=== PATIENT | female | born 1970 | race Caucasian/White ===

== ENCOUNTER → 2016-06-15 08:55 | Outpatient (CLI) | payer OTHER, BC ==
[~2016-06-15 08:55] MED LIST: ACETAMINOPHEN325 MG PO; BENADRYL25 MG PO; DEMEROL50 MG PO; IBUPROFEN600 MG PO
[2016-06-23 09:48] VITALS: BMI 27.3
== END | disposition home or self-care (01) ==
LOC: D.LDO 08:55
DX: O09.513 Supervision of elderly primigravida, third trimester (principal); Z3A.38 38 weeks gestation of pregnancy

== ENCOUNTER → 2016-06-18 08:31 | Outpatient (CLI) | payer OTHER, BC ==
[2016-06-23 09:48] VITALS: BMI 27.3
== END | disposition home or self-care (01) ==
LOC: D.LDO 08:31
DX: O24.419 Gestational diabetes mellitus in pregnancy, unspecified control (principal); O09.513 Supervision of elderly primigravida, third trimester; Z3A.39 39 weeks gestation of pregnancy

== ENCOUNTER → 2016-06-20 08:40 | Outpatient (CLI) | payer OTHER, BC ==
[2016-06-20 09:16] LABS: BASOPHILS 0.2 % (0.0-2.0); EOSINOPHILS 0.6 % (0-7); HEMATOCRIT 33.5 % (36.0-48.0); HEMOGLOBIN 11.3 g/dL (12-16); IMMATURE GRANULOCYTES 0.2 % (0-5); LYMPHOCYTES 20.3 % (15-50); MCH 30.5 pg (26.0-34.0); MCHC 33.7 g/dL (31.0-37.0); MCV 90.5 fL (80.0-100.0); MEAN PLATELET VOLUME 10.4 fL (7.4-10.4); MONOCYTES 7.8 % (2-11); NEUTROPHILS 70.9 % (40-80); PLATELET COUNT 154 10x3/uL (130-400); RDW 12.7 % (11.5-14.5); WBC 5.2 10x3/uL (4.8-10.8)
[2016-06-20 09:23] LABS: CALC OSMOLALITY 275 mosm/kg (275-300); CALCIUM 8.4 mg/dL (8.5-10.1); CARBON DIOXIDE 19.5 mmol/L (21.0-32.0); CHLORIDE - SERUM 108 mmol/L (98-107); CREATININE - SERUM 0.7 mg/dL (0.6-1.3); GLUCOSE 85 mg/dL (74-106); POTASSIUM - SERUM 3.8 mmol/L (3.5-5.1); SODIUM 139 mmol/L (136-145); UREA NITROGEN 11 mg/dL (7-18); eGFR NON AFRICAN AMERICAN > 90 mL/min (90-120)
[2016-06-20 09:28] LABS: APPEARANCE HAZY (CLEAR); BACTERIA MODERATE /hpf (NONE SEEN); BILIRUBIN NEGATIVE (NEGATIVE); COLOR YELLOW (YELLOW); GLUCOSE NEGATIVE (NEGATIVE); KETONE NEGATIVE (NEGATIVE); LEUKOCYTE ESTERASE 1+ (NEGATIVE); NITRITE NEGATIVE (NEGATIVE); PROTEIN NEGATIVE (NEGATIVE); RED CELLS - URINE 0-5 /hpf (0-5); UROBILINOGEN NORMAL (NORMAL)
--- NOTE | 2016-06-20 09:42 | NUR ---
DR REYNA NOTIFIED OF PT REQUEST REGARDING PAIN MEDICATION, INSTRUCTED TO LET HER KNOW THAT HE DOES NOT PRESCRIBE NARCOTICS WHEN UDS COMES UP POSITIVE FOR AMPHETAMINES. INSTRUCTED PT ON THIS INFORMATION AND SHE STATES "THAT'S OK, I UNDERSTAND." INSTRUCTED ON RELIEF MEASURES FOR BACKPAIN AND USE OF MOTRIN. VERBALIZED UNDERSTANDING. WILL DC NOW TO ROOMING IN STATUS. VISITOR X 1 IN ROOM.
[2016-06-23 09:48] VITALS: BMI 27.3
== END | disposition home or self-care (01) ==
LOC: D.LDO 08:40
PROVIDERS: Obstetrics & Gynecology
DX: Z34.83 Encounter for supervision of other normal pregnancy, third trimester (principal); Z3A.39 39 weeks gestation of pregnancy; R11.0 Nausea; R10.9 Unspecified abdominal pain

== ENCOUNTER → 2016-06-21 11:05 | Outpatient (CLI) | payer OTHER, BC ==
[2016-06-23 09:48] VITALS: BMI 27.3
== END | disposition home or self-care (01) ==
LOC: D.LDO 11:05
DX: O09.513 Supervision of elderly primigravida, third trimester (principal); Z3A.39 39 weeks gestation of pregnancy

== ENCOUNTER 2016-06-23 04:45 | Inpatient (IN) | payer OTHER, BC ==
[~2016-06-23] VITALS: Ht 152.4 cm; Wt 63.5 kg
[2016-06-23] VITALS (12 sets, daily range): BP systolic 109–146; BP diastolic 65–89; Ht 152.4 cm; Wt 63.5 kg
[2016-06-23] MEDS ORDERED: ACETAMINOPHEN325 MG PO (05:43)
[2016-06-23] MEDS ORDERED: BENADRYL25 MG PO (05:43)
[2016-06-23 06:28] LABS: HEMATOCRIT 35.1 % (36.0-48.0); HEMOGLOBIN 11.7 g/dL (12-16); MCHC 33.3 g/dL (31.0-37.0); MEAN PLATELET VOLUME 10.9 fL (7.4-10.4); RBC 3.9 10x6/uL (4.00-5.40); RDW 12.8 % (11.5-14.5)
[2016-06-23 06:39] LABS: APPEARANCE HAZY (CLEAR); BILIRUBIN NEGATIVE (NEGATIVE); COLOR YELLOW (YELLOW); GLUCOSE NEGATIVE (NEGATIVE); KETONE NEGATIVE (NEGATIVE); LEUKOCYTE ESTERASE 1+ (NEGATIVE); NITRITE NEGATIVE (NEGATIVE); PROTEIN NEGATIVE (NEGATIVE); UROBILINOGEN NORMAL (NORMAL)
[2016-06-23 06:44] LABS: BACTERIA MODERATE /hpf (NONE SEEN); MUCUS <1+ /lpf (NONE SEEN); RED CELLS - URINE RARE /hpf (0-5); WHITE CELLS - URINE 0-5 /hpf (0-5)
--- NOTE | 2016-06-23 09:15 | NUR ---
PT WAS RECEIVED FROM RECOVERY. PT WAS AWAKE AND ALERT. FAMILY AND AT BEDSIDE. LUNGS- CLEAR. HEART- RRR ABD- SOFT WITH TENDERNESS. FUNDUS FIRM AT 2 ABOVE UMBILICUS. EXT- SCD'S INTACT. YOUNG INTACT- 125 CC SUHAS COLORED URINE. IV INTACT R FOREARM. IV PATENT LACTATED RINGERS WITH 20 UNITS OF PIT INFUSING AT 125 CC/HR. BED IS LOW. CALL LIGHT IN REACH AND SIDE RAILS UP X 2.
--- NOTE | 2016-06-23 10:00 | NUR ---
PT IS RESTING IN BED. OFFERS NO COMPLAINTS. STATES PAIN IS ABOUT A 3 NOW.
--- NOTE | 2016-06-23 10:39 | NUR ---
BABY TO ROOM. MOTHER FEEDING BABY A BOTTLE. BED IS LOW, CALL LIGHT IN REACH SIDE RAILS UP X 2
--- NOTE | 2016-06-23 12:28 | OP ---
PATIENT NAME: HERBERTH FLOR MEDICAL RECORD: [id number] :74 LOCATION:TRAN [id number] ADMISSION DATE:06/23/16 SURGEON: LUDA MOHR MD DATE OF OPERATION: 06/23/2016 PREOPERATIVE DIAGNOSES: A 39-week gestation, gestational diabetes, previous section and undesired fertility. POSTOPERATIVE DIAGNOSES: A 39-week gestation, gestational diabetes, previous section and undesired fertility. PROCEDURE: Repeat low transverse section and bilateral tubal ligation. SURGEON: Luda Mohr MD. ANESTHESIA: Spinal. FINDINGS: A 7 pound and 6 ounce female infant in cephalic presentation with clear fluid, 9 and 9 Apgars. ESTIMATED BLOOD LOSS: 800 cc. COMPLICATIONS OF SURGERY: None. OPERATIVE NOTE: The patient was taken to the OR and under adequate spinal anesthesia, prepped and draped in the usual manner for abdominal procedures. A transverse incision was made in the lower abdomen in a Pfannenstiel manner extended through subcutaneous tissue, fascia, dividing muscles in the midline. Peritoneum was elevated and incised and this incision extended from the symphysis pubis to within 6 cm of the umbilicus, avoiding the bladder and abdominal organs. A transverse incision was then made in the lower uterine segment and infant was delivered through the uteroabdominal incision without difficulty. was thoroughly suctioned, cord doubly clamped and ligated and the handed to the waiting nursery personnel. Uterine incision closed in 2 layers after removal of the placenta. The first layer was a running interlocked locking #1 chromic; second layer an imbricating #1 chromic. Pelvis was copiously irrigated and suctioned and hemostasis confirmed. The tubes were then addressed. The right tube and left tube were both ligated in Emiyl manner without difficulty. The pelvis was again copiously irrigated and suctioned and hemostasis again confirmed. Maggie was applied to the lower uterine segment incision. Sponge, needle counts again correct. Fascial layer was closed in a running noninterlocking #1 PDS loop suture. Skin incision reapproximated using 2-0 plain gut subcuticular suture. Dermabond was applied. Steri-Strip dressing applied and the patient went to recovery area in good condition. TRANSINT:[id number] Voice Confirmation ID: [id number] DOCUMENT ID: [id number] OPERATIVE REPORT [id number] HERBERTH FLOR BRENDA MD at 1228 CC: [id number] DICTATION DATE: 06/23/16903 DIRECTOR OF CODING: 06/23/16 0924 ADM IN [facility] [address] [id number]
--- NOTE | 2016-06-23 12:48 | NUR ---
LINENS CHANGED. MODERATE LOCIA RUBRA ON GROVER PAD AND BED PAD. ALL PADS CHANGED. PT WAS CLEANED UP ALSO. OFFERS NO COMPLAINTS. ROLLED SIDE TO SIDE AND TOLERATED WELL.
--- NOTE | 2016-06-23 13:52 | NUR ---
PT IS RESTING IN BED. SHE OFFERS NO COMPLAINTS. HER IS AT BEDSIDE.
--- NOTE | 2016-06-23 15:13 | NUR ---
PT REQUESTED PAIN MED. GAVE HER DEMEROL 50 MG. ALSO GAVE HER FRESH ICE WATER. AT BEDSIDE. BED IS LOW. SIDE RAILS UP X 2 AND CALL LIGHT IN REACH.
--- NOTE | 2016-06-23 16:13 | NUR ---
PT IS SITTING UP IN BED, HOLDING BABY. SHE OFFERS NO COMPLAINTS. SHE STATES THAT SHE IS VERY THANKFUL FOR OUR CARE.
--- NOTE | 2016-06-23 18:34 | NUR ---
FUNDUS FIRM. TORADOL GIVEN IV FOR PAIN.
--- NOTE | 2016-06-23 19:00 | NUR ---
PM ROUNDS MADE, PT HOLDING BABY, INFORMED PT THAT I WILL BE BACK SHORTLY TO DO ASSESSMENT, PT VERBALIZES UNDERSTANDING, DENIES NEEDS AT THIS TIME
--- NOTE | 2016-06-23 19:30 | NUR ---
PT GETTING READY TO BOTTLE FEED BABY, INFORMED PT THAT I WILL COME BACK WHEN SHE IS FINISHED, VERBALIZES UNDERSTANDING, DENIES NEEDS
--- NOTE | 2016-06-23 20:15 | NUR ---
ASSESSMENT PER FLOW SHEET, VS OBTAINED, IV IN RIGHT FA INTACT WITH NO REDNESS OR EDEMA INFUSING VIA PUMP NS WITH PITOCIN AT 125 ML/HR, FF, ML, 2/U, LIGHT BLEEDING NOTED WITH NO CLOTS, GROVER CARE DONE WITH WET WARM WASH CLOTHS, PINK PAD, BLUE CHUX AND GROVER PAD CHANGED, BIKINI INC WITH SS CDI WITH NO DRAINAGE NOTED, FRESH ICE PACK TO ABD, YOUNG CATH INTACT DRAINING DARK YELLOW URINE, PT INST TO DRINK PLENTY OF FLUIDS, PT REQUESTS [facility], WILL BRING WITH PAIN MED, PT RATES INC PAIN 10/20, PT REQUEST THE REMOVAL OF THE YOUNG AND STOPPING THE PITOCIN, STATES "I HATE THAT PITOCIN", INFORMED PT THAT I WILL CALL THE DOCTOR SOFTWARE DEVELOPMENT INTERN AND SEE IF I CAN GET A 12 HOUR POST OP ORDER, PT STATES "THAT WOULD BE GREAT, THANK YOU", SCD'S ON AND WORKING PROPERLY, BABY BACK TO ARMS
--- NOTE | 2016-06-23 20:36 | NUR ---
ADM DEMEROL 100 MG PO PER MD ORDERS, SEE EMAR, WITH [facility], PT DENIES FURTHER NEEDS, TRASH REMOVED
--- NOTE | 2016-06-23 21:15 | NUR ---
DR REYNA NOTIFIED, REPORT OF PT WANTING THE YOUNG CATH REMOVED AND STOPPING THE PITOCIN, ORDERS RECEIVED
--- NOTE | 2016-06-23 21:40 | NUR ---
PT HOLDING BABY, INFORMED PT OF ORDERS, PT STATES "THAT SOUNDS GREAT, THANK YOU FOR GETTING THAT ORDER", INFORMED PT THAT I WILL REMOVE YOUNG, SALINE LOCK IV, AND MOVE HER TO ROOM 1257 AFTER SHE FEEDS BABY, PT VERBALIZES UNDERSTANDING, DENIES FURTHER NEEDS
--- NOTE | 2016-06-23 22:00 | NUR ---
BABY TO NSY VIA OPEN CRIB CART PER THIS RN, INFORMED PT THAT BABY WILL BE RIGHT BACK AFTER BS CHECK
--- NOTE | 2016-06-23 23:15 | NUR ---
TRANSFERRED PT TO ROOM 1257 VIA WC, PT DID WELL, PT VERY APPRECIATIVE OF MOVING TO THE BIGGER ROOM, ALL BELONGINGS TRANSFERRED WITH PT, PT TRANSFERRED SELF TO FROM BED TO WC AND THEN WC TO BED WITH NO DIFFICULTY, FRESH ICE PACK TO ABD, VS OBTAINED, FRESH H20 SERVED, PT ORIENTED TO ROOM, BED IN LOW POSITION, SIDE RAILS X 2, CALL LIGHT IN REACH, BABY IN NSY AT THIS TIME FOR PT TO REST BEFORE NEXT FEEDING, PT DENIES FURTHER NEEDS
--- NOTE | 2016-06-24 00:30 | NUR ---
PT AROUSES TO OPENING OF DOOR, RATES INC PAIN 2/10, DENIES NEEDS AT THIS TIME
--- NOTE | 2016-06-24 00:46 | NUR ---
BOTTLE TAKEN TO PT FOR INFANT. PT BONDING WITH INFANT, DENIES NEEDS AT THIS TIME. BED IN LOW POSITION WITH UPPER SIDE RAILS RAISED X2. CL/PHONE WITHIN REACH.
--- NOTE | 2016-06-24 01:00 | NUR ---
PT AWAKE, BABY TO ROOM VIA OPEN CRIB CART PER THIS RN FOR FEEDING, BANDS CHECKED, PT DENIES NEEDS AT THIS TIME
--- NOTE | 2016-06-24 04:30 | NUR ---
CURRENT INFUSION OF PITOCIN COMPLETE. IV SL AT THIS TIME. PT DENIES FURTHER NEEDS. WILL CONTINUE TO MONITOR.
[2016-06-24 05:15] LABS: RAPID PLASMA REAGIN Non Reactive (Non Reactive)
[2016-06-24 06:23] LABS: HEMOGLOBIN 10.3 g/dL (12-16); MCHC 33.2 g/dL (31.0-37.0); MCV 90.4 fL (80.0-100.0); RBC 3.43 10x6/uL (4.00-5.40); RDW 12.9 % (11.5-14.5); WBC 7.1 10x3/uL (4.8-10.8)
--- NOTE | 2016-06-24 07:15 | NUR ---
DR KAT IS HERE TO SEE PT. PT IS SCHEDULED TO HAVE SURGERY TODAY FOR ORIF OF LEFT WRIST BY DR BECKER TODAY. PT HAS BEEN NPO SINCE LAST PM.
[2016-06-24 07:30] VITALS: BP 109/68
--- NOTE | 2016-06-24 07:30 | NUR ---
ASSESSMENT DONE. PT SITTING UP IN BED. DENIES NEEDS. FUNDUS FIRM. SMALL LOCHIA NOTED ON PAD.
--- NOTE | 2016-06-24 07:30 | NUR ---
PT IS RECEIVED LYING IN BED. SHE STATES THAT SHE IS SUPPOSE TO BE HAVING SURGERY TODAY ON HER LEFT WRIST. SHE IS NPO. GEN- AWAKE AND ALERT. LUNGS- CLEAR. HEART- RRR. ABDOMEN- SOFT NON TENDER. BS +. LE NO EDEMA NOTED. LEFT UPPER EXTREMITY IN A SPLINT AND SLING AT THIS TIME. SHE CAN MOVE HER FINGERS AND FEEL ME TOUCH THEM. SHE HAS AN IV R FOREARM WHICH IS PATENT. D5LR INFUSING @ 75 CC/HR. SHE HAS A MORPHINE DIRECTOR OF SAFETY. BED IS LOW, CALL LIGHT IN REACH, SIDE RAILS UP X 2.
--- NOTE | 2016-06-24 07:45 | NUR ---
RESPIRATORY THERAPY HERE AND GAVE PT A BREATHING TREATMENT. PT TOLERATED WELL.
--- NOTE | 2016-06-24 07:47 | NUR ---
dr argueta in room to see pt.
--- NOTE | 2016-06-24 07:50 | NUR ---
YOUNG CATH REMOVED POST BULB DEFLATED WITH 650CC YELLOWISH URINE.
--- NOTE | 2016-06-24 09:05 | NUR ---
ambulated to bathroom. voided 800cc yellowish- lt blood tinged urine. into shower tolerated well.
--- NOTE | 2016-06-24 09:37 | NUR ---
returned to bed. states will take demerol 50mg po for pain now.
--- NOTE | 2016-06-24 11:00 | NUR ---
pt up and about in room. rates pain 1 on scale of 0-10 at this time.
[2016-06-24 11:30] LABS: BASOPHILS 0.1 % (0.0-2.0); EOSINOPHILS 0.1 % (0-7); HEMATOCRIT 33.1 % (36.0-48.0); HEMOGLOBIN 10.9 g/dL (12-16); IMMATURE GRANULOCYTES 0.1 % (0-5); LYMPHOCYTES 8.1 % (15-50); MCH 29.9 pg (26.0-34.0); MCHC 32.9 g/dL (31.0-37.0); MCV 90.9 fL (80.0-100.0); MONOCYTES 3.6 % (2-11); PLATELET COUNT 128 10x3/uL (130-400); RBC 3.64 10x6/uL (4.00-5.40); RDW 12.7 % (11.5-14.5); WBC 7.5 10x3/uL (4.8-10.8)
[2016-06-24 12:00] VITALS: BP 92/61
--- NOTE | 2016-06-24 12:00 | NUR ---
PT UP AND ABOUT IN ROOM. VOIDED AGAIN WITH 600CC IN CONTAINER. RATES PAIN A 1 ON SCALE OF 0-10. DENIES NEEDS.
--- NOTE | 2016-06-24 14:55 | NUR ---
rings call light. requesting pain medication. rates pain a 7 on scale of 0-10. states has been to bathroom and has had a bm and is passing gas.
--- NOTE | 2016-06-24 15:55 | NUR ---
pt up and ambulating in hallways- tolerated well.
--- NOTE | 2016-06-24 16:25 | NUR ---
sitting up in bed. family at bedside. no requests- denies needs.
--- NOTE | 2016-06-24 18:30 | NUR ---
SITTING UP IN BED- IN ROOM. STATES THAT SINUS ARE FEELING A LITTLE STUFFY. DENIES NEED FOR MEDICATION FOR SINUSES OR PAIN AT THIS TIME.
[2016-06-24 19:30] VITALS: BP 116/75
--- NOTE | 2016-06-24 19:30 | NUR ---
SHIFT ASSESSMENT COMPLETED. PATIENT BONDING WITH AT THIS. VSS. FUNDUS FIRM, U2, SCANT AMT RUBRA LOCHIA TO PERIPAD, NO CLOTS. PATIENT STATES THAT SHE HAD JUST CHANGED PERIPAD AROUND 1845. INCISION CLEAN AND DRY WITH STERISTRIPS INTACT. PILLOW CASE PLACED IN ABD FOLD TO ASSIST WITH KEEPING INCISION CLEAN AND DRY, INSTRUCTED PATIENT THAT SHE COULD DO THIS AT HOME WELL, VERBALIZED UNDERSTANDING. INSTRUCTED ON S/S OF INFECTION/COMPLICATIONS TO REPORT FOLLOWING D/C HOME AND LIFTING RESTRICTIONS. EDUCATED REGARDING LOCHIA AMT/APPEARENCE/DURATION DURING PP PERIOD, PT VERBALIZED UNDERSTANDING STATING THAT SHE HAD HAD A PREVIOUS AND HAD OTHER CHILDREN AND REMEMBERED FROM THEM WELL. BED IN LOW POSITION. CL/PHONE WITHIN REACH. UPPER SIDE RAILS RAISED X2. SL NOTED IN RT FOREARM, FLUSHES WITHOUT DIFFICULTY. PAIN CURRENTLY "2-3/10" DENIES NEED FOR MEDICATIONS AT THIS TIME. PT NOTED TO HAVE NASAL CONGESTION, REQUESTS MEDS FOR THIS. REPORTED TO DR. PATEL WITH V/O FOR SUDAFED Q6HR PRN AND PAULINA DAILY. PHARMACY NOTIFED AND REQUESTED TO BRING MEDS.
--- NOTE | 2016-06-24 20:31 | NUR ---
PATIENT BOTTLE FEEDING INFANT AT THIS TIME. DENIES NEEDS. PAIN 08/20. WILL CONT TO MONITOR AND ASSIST PRN.
--- NOTE | 2016-06-24 21:39 | NUR ---
PAIN CURRENTLY 5/10, ABD CRAMPING, INCISIONAL BURNING. PATIENT REQUESTED 50 MG DEMEROL "TO GET ME THROUGH THE NIGHT." PAULINA AND SUDAFED GIVEN PER ORDERS FOR NASAL CONGESTION. PATIENT DENIES ADDITIONAL NEEDS AT THIS TIME. INFANT REMAINS IN ROOM, PATIENT BONDING WELL WITH INFANT. BED REMAINS IN LOW POSITION. CL/PHONE WITHIN REACH. UPPER SIDE RAILS RAISED X2. DENIES ADDITIONAL NEEDS AT THIS TIME.
--- NOTE | 2016-06-24 22:36 | NUR ---
PAIN REASSESSMENT COMPLETED. PAIN 06/22 CURRENTLY. DENIES NEED FOR ADDITIONAL INTERVENTION. SITTING UP IN BED HOLDING INFANT AT THIS TIME, DENIES NEEDS. WILL CONT TO MONITOR AND ASSIST PRN.
[2016-06-24 23:40] VITALS: BP 103/71
--- NOTE | 2016-06-24 23:45 | NUR ---
ROUNDS MADE. VSS. FUNDUS REMAINS FIRM, U2. SMALL AMT RUBRA LOCHIA TO PERIPAD, NO CLOTS. ICE WATER GIVEN. REFUSES SCD'S STATING THAT SHE IS GOING TO WALK AROUND THE UNIT AND CAN'T REST WELL WITH THEM ON. DENIES ADDITIONAL NEEDS AT THIS TIME. INFANT REMAINS IN ROOM, INSTRUCTED THAT WOULD NEED TO BE IN NBN WHEN SHE AMBULATED, VERBALIZED UNDERSTANDING.
--- NOTE | 2016-06-25 02:31 | NUR ---
PT SLEEPING AT THIS TIME. IN NBN. RESPIRATIONS REGULAR, NO S/S OF DISTRESS NOTED. BED IN LOW POSITION. CL/PHONE WITHIN REACH. WILL CONT TO MONITOR AND ASSIST PRN.
--- NOTE | 2016-06-25 03:31 | NUR ---
INFANT TAKEN BACK TO ROOM. VSS. FUNDUS REMAINS FIRM, U2. SMALL AMT RUBRA LOCHIA TO PERIPAD, NO CLOTS. REQUESTED MOTRIN AND DEMEROL FOR PAIN 8/10 TO INCISION AND ABD CRAMPING.
--- NOTE | 2016-06-25 03:55 | NUR ---
PAIN 9/10. DEMEROL (50 MG) TAB GIVEN PER ORDERS AND PT REQUEST, MOTRIN ALSO GIVNEN. ICE WATER GIVEN. PT CURRENTLY SITTING UPRIGHT IN BED BOTTLE FEEDING INFANT. REQUEST ICE PACK TO PLACE ON INCISION, GIVEN PER REQUEST. DENIES ADDITIONAL NEEDS. WILL CONT TO MONITOR AND ASSIST PRN.
--- NOTE | 2016-06-25 04:39 | NUR ---
PAIN REASSESSMENT COMPLETED. PAIN 07/23. ICE WATER GIVEN. DENIES ADDITIONAL NEEDS AT THIS TIME. ICE PACK REMAINS IN PLACE TO ABD.
--- NOTE | 2016-06-25 06:23 | NUR ---
ROUNDS MADE. PT SITTING UP IN BED HOLDING INFANT. REQUESTED BOTTLE FOR INFANT. NBN NOTIFIED, RN TO GET BOTTLE FROM NBN. PER NBN RN DID NOT NEED TO FEED AGAIN UNTIL 0800, INSTRUCTED PT ON THIS. PT STATES THAT ONLY ATE 30 MLS AND CONTINUED TO ROOT, ENCOURAGED TO BURP INFANT BEFORE FEEDING, PT STATES THAT INFANT BURPED WELL. PT CHANGING DIAPER UPON RN LEAVING ROOM.
--- NOTE | 2016-06-25 08:00 | NUR ---
PATIENT AWAKE AND ALERT, SITTING UP IN HER BED. FEMALE VISITOR AT THE BEDSIDE HOLDING . PATIENT DENIES DISCOMFORT AND NEED FOR MEDICATION. SHE ANTICIPATES GOING HOME TODAY, STATES THAT SHE IS EXCITED AND NERVOUS.
--- NOTE | 2016-06-25 10:30 | NUR ---
FOB AT THE BEDSIDE BOTTLE FEEDING THE . HE IS HOLDING HER AND TALKING LOVINGLY TO HER. MOB CONFESSES TO SOME SORENESS BUT NO UNCONTROLLED PAIN. INCISION IS CLEAN DRY AND INTACT. SHE IS AMBULATING AROUND HER ROOM PREPARING FOR THE DAY.
[2016-06-25] MEDS ORDERED: DEMEROL50 MG PO (11:08)
[2016-06-25] MEDS ORDERED: IBUPROFEN600 MG PO (11:08)
--- NOTE | 2016-06-25 11:15 | NUR ---
DISCHARGE INSTRUCTIONS REVIEWED WITH PATIENT. INCLUDED PAIN MANAGEMENT, FOLLOW UP, INCISION CARE AND PELVIC REST. PRESCRIPTIONS GIVEN. FOB AT THE BEDSIDE. SHE VOICES THAT HE IS VERY HELPFUL AT HOME.
== END 2016-06-25 11:30 | disposition home or self-care (01) | DRG 766 ==
LOC: D.WS 04:45 → D.LD 04:45 → D.WS 04:45 → D.LD 07:30 → D.WS 09:05 → D.LD 23:15
PROVIDERS: ADMIT Obstetrics & Gynecology
PROC: 10D00Z1 Extraction of Products of Conception, Low, Open Approach (ICD-10-PCS; principal; 2016-06-23 07:30)
PROC: 0UB70ZZ Excision of Bilateral Fallopian Tubes, Open Approach (ICD-10-PCS; 2016-06-23 07:30)
DX: O34.211 Maternal care for low transverse scar from previous cesarean delivery (principal); O24.420 Gestational diabetes mellitus in childbirth, diet controlled; Z30.2 Encounter for sterilization; Z3A.39 39 weeks gestation of pregnancy; Z37.0 Single live birth

== ENCOUNTER → 2018-04-19 19:27 | Outpatient (CLI) | payer BC ==
[2016-06-23 09:48] VITALS: BMI 27.3
== END | disposition home or self-care (01) ==
LOC: D.MAMMO 09:00
DX: Z12.31 Encounter for screening mammogram for malignant neoplasm of breast (principal)

== ENCOUNTER 2020-08-28 11:30 | Outpatient (CLI) | payer BC ==
[2016-06-23 09:48] VITALS: BMI 27.3
== END 2020-08-28 12:00 | disposition home or self-care (01) ==
LOC: D.MAMMO 11:30
PROVIDERS: ATTEND Obstetrics & Gynecology
DX: Z12.31 Encounter for screening mammogram for malignant neoplasm of breast (principal); Z01.419 Encounter for gynecological examination (general) (routine) without abnormal findings

== ENCOUNTER → 2020-09-11 07:29 | Outpatient (CLI) | payer BC ==
[2016-06-23 09:48] VITALS: BMI 27.3
== END | disposition home or self-care (01) ==
LOC: D.US 07:29 → D.NM 08:30
PROVIDERS: ATTEND Internal Medicine Interventional Cardiology
DX: R10.11 Right upper quadrant pain (principal)